=== PATIENT | female | born 1960 ===

== ENCOUNTER 2025-01-31 12:00 | Outpatient (RCR) | payer OTHER, SELFPAY ==
[2025-01-06] MEDS: Normal Saline Flush 10 ML SYR IVP (09:40)
[2025-01-06 10:10] LABS: Abs Immature Grans 0.04 10^3/uL (0.0-0.06); HCT 34.5 % (36.0-46.0); HGB 11.3 g/dL (11.2-15.7); Immature Grans % 0.7 %; MCH 31.9 pg (27.0-33.0); MCHC 32.8 % (32.0-36.0); MCV 98 fL (80-95); MPV 9.7 fL (8.0-11.0); Platelet Count 393 10^3/uL (130-400); RBC 3.54 10^6/uL (3.93-5.22); RDW 14.3 % (11.7-14.6); RDW-SD 51.1 fL; WBC 5.73 10^3/uL (4.4-10.8)
[2025-01-06 10:45] LABS: ALT 23 U/L (14-59); AST 19 U/L (15-37); Albumin 3.6 g/dL (3.4-5.0); Alkaline Phosphatase 209 U/L (46-116); Anion Gap 7.6 mmol/L (3-11); BUN 27 mg/dL (7-18); Bilirubin, Total 0.4 mg/dL (0.2-1.0); CO2 26.4 mmol/L (21.0-32.0); Calcium 9.1 mg/dL (8.5-10.1); Chloride 105 mmol/L (98-107); Estimated GFR 63.30 (mL/min/1.73m2); Glucose 100 mg/dL (74-106); Potassium 4.7 mmol/L (3.5-5.1); Sodium 139 mmol/L (136-145); TSH 10.11 uIU/mL (0.36-3.74); Total Protein 6.9 g/dL (6.4-8.2)
[2025-01-31] MEDS: Normal Saline Flush 10 ML SYR IVP (12:28)
[2025-01-31 12:29] LABS: Abs Immature Grans 0.02 10^3/uL (0.0-0.06); HCT 41.6 % (36.0-46.0); HGB 14.0 g/dL (11.2-15.7); Immature Grans % 0.3 %; MCH 32.3 pg (27.0-33.0); MCHC 33.7 % (32.0-36.0); MCV 96 fL (80-95); MPV 10.2 fL (8.0-11.0); Platelet Count 309 10^3/uL (130-400); RBC 4.33 10^6/uL (3.93-5.22); RDW 13.7 % (11.7-14.6); RDW-SD 48.5 fL; WBC 6.30 10^3/uL (4.4-10.8)
[2025-01-31 12:55] LABS: ALT 25 U/L (14-59); AST 17 U/L (15-37); Albumin 4.2 g/dL (3.4-5.0); Alkaline Phosphatase 138 U/L (46-116); Anion Gap 11.8 mmol/L (3-11); BUN 22 mg/dL (7-18); Bilirubin, Total 0.5 mg/dL (0.2-1.0); CO2 26.2 mmol/L (21.0-32.0); Calcium 10.3 mg/dL (8.5-10.1); Chloride 102 mmol/L (98-107); Estimated GFR 46.21 (mL/min/1.73m2); Glucose 165 mg/dL (74-106); Potassium 4.2 mmol/L (3.5-5.1); Sodium 140 mmol/L (136-145); TSH 9.43 uIU/mL (0.36-3.74); Total Protein 7.7 g/dL (6.4-8.2)
== END 2025-02-02 23:59 | disposition home or self-care (01) ==
LOC: INF 12:00
PROVIDERS: Visit Provider Nurse Practitioner
DX: Z45.2 Encounter for adjustment and management of vascular access device (principal); C76.0 Malignant neoplasm of head, face and neck
CPT/HCPCS: 36591; 80053; 84439; 84443; 85025

== ENCOUNTER 2025-02-24 06:50 | Outpatient (RCR) | payer OTHER, SELFPAY ==
[2025-02-24] MEDS: Normal Saline Flush 10 ML SYR IVP (11:38)
[2025-02-24 12:01] LABS: Abs Immature Grans 0.05 10^3/uL (0.0-0.06); HCT 36.4 % (36.0-46.0); HGB 12.0 g/dL (11.2-15.7); Immature Grans % 0.7 %; MCH 32.5 pg (27.0-33.0); MCHC 33.0 % (32.0-36.0); MCV 99 fL (80-95); MPV 9.9 fL (8.0-11.0); Platelet Count 291 10^3/uL (130-400); RBC 3.69 10^6/uL (3.93-5.22); RDW 13.2 % (11.7-14.6); RDW-SD 48.0 fL; WBC 7.05 10^3/uL (4.4-10.8)
[2025-02-24 12:27] LABS: ALT 23 U/L (14-59); AST 16 U/L (15-37); Albumin 3.6 g/dL (3.4-5.0); Alkaline Phosphatase 91 U/L (46-116); Anion Gap 6.3 mmol/L (3-11); BUN 16 mg/dL (7-18); Bilirubin, Total 0.4 mg/dL (0.2-1.0); CO2 27.7 mmol/L (21.0-32.0); Calcium 9.5 mg/dL (8.5-10.1); Chloride 103 mmol/L (98-107); Glucose 124 mg/dL (74-106); Potassium 4.6 mmol/L (3.5-5.1); Sodium 137 mmol/L (136-145); TSH 6.38 uIU/mL (0.36-3.74); Total Protein 6.5 g/dL (6.4-8.2)
== END 2025-03-04 23:59 | disposition home or self-care (01) ==
LOC: INF 06:50
PROVIDERS: Visit Provider Nurse Practitioner
DX: Z45.2 Encounter for adjustment and management of vascular access device (principal); C76.0 Malignant neoplasm of head, face and neck
CPT/HCPCS: 36591; 80053; 84439; 84443; 85025